=== PATIENT | male | born 1950 | race Caucasian/White ===

== ENCOUNTER 2016-12-21 21:40 | Inpatient (IN) | payer MEDICARE ==
[~2016-12-21] VITALS: Ht 165.1 cm; Wt 85.3 kg
[~2016-12-21 21:40] MED LIST: BRIM15DR8 OP; DORZ10DR7 EACHEYE; ERYTHROMYCIN RIGHTEYE; FINA5TAB11 PO; LATA2.5D2 RIGHTEYE; LISI-604 PO; OMEP20CA10 PO; P20 PO; PYRI60TA10 PO; TAMS0.4C31 PO
[2016-12-21] MEDS ORDERED: SODIUM CHLORIDE 0.9% 1,000 ML IV ONE (22:06)
[2016-12-21] MEDS ORDERED: KETOROLAC 30MG/ML VIAL IV STA (22:06)
[2016-12-21 22:57] LABS: HEMATOCRIT. 41.4 % (42.0-52.0); HEMOGLOBIN. 13.4 g/dL (14.0-18.0); MEAN CORPUSCULAR HEMOGLOBIN 29.7 pg (28.0-32.0); MEAN CORPUSCULAR VOLUME 91.6 fL (80.0-94.0); MEAN PLATELET VOLUME 7.6 fl (7.4-10.4); PLATELET 220 x1000/uL (130-400); RED BLOOD CELL COUNT 4.52 mill/uL (4.7-6.1)
[2016-12-21 23:09] LABS: CARBON DIOXIDE 21 mEq/L (21-32); CHLORIDE 106 mEq/L (98-107); INR 1.3; PROTHROMBIN TIME 13.5 sec (9.4-11.6)
[2016-12-21 23:34] LABS: PLATELET ESTIMATE NORMAL
[2016-12-22] VITALS (44 sets, daily range): BP systolic 47–173; BP diastolic 23–96
[2016-12-22] MEDS ORDERED: PIPERACILLIN/TAZ 3.375G PREMIX 50 ML IV ONE
[2016-12-22] MEDS ORDERED: METRONIDAZOLE 500 MG PREMIX 100 ML IV ONE
[2016-12-22] MEDS ORDERED: ACETAMINOPHEN 325MG TABLET PO PRN (00:45)
[2016-12-22] MEDS ORDERED: ONDANSETRON HCL 4MG/2ML VIAL IV PRN (00:45)
[2016-12-22] MEDS ORDERED: PIPERACILLIN/TAZ 3.375G PREMIX 50 ML IV SCH (00:45)
[2016-12-22] MEDS ORDERED: ENOXAPARIN 40MG/0.4ML SYR SUBCUT SCH (00:45)
[2016-12-22 01:10] LABS: HEMATOCRIT. 32.9 % (42.0-52.0); MEAN CORPUSCULAR HEMOGLOBIN 30.5 pg (28.0-32.0); MEAN CORPUSCULAR VOLUME 91.7 fL (80.0-94.0); MEAN PLATELET VOLUME 7.1 fl (7.4-10.4); PLATELET 161 x1000/uL (130-400); RED BLOOD CELL COUNT 3.59 mill/uL (4.7-6.1); RED CELL DISTRIBUTION WIDTH 15.1 % (11.6-14.6)
[2016-12-22] MEDS: SODIUM CHLORIDE 0.9% 1,000 ML IV SCH ×3 (01:23→12:59)
[2016-12-22] MEDS ORDERED: KCL 10MEQ/50ML PREMIX 50 ML IV ONE (02:00)
[2016-12-22 02:13] LABS: CLARITY URINE TURBID (CLEAR); COLOR URINE DARK YELLOW (YELLOW); GLUCOSE URINE TRACE (NEGATIVE); KETONES URINE TRACE (NEGATIVE); LEUKOCYTE ESTERASE URINE 1+ (NEGATIVE); NITRITE URINE NEGATIVE (NEGATIVE); OCCULT BLOOD URINE 3+ (NEGATIVE); PROTEIN URINE 2+ (NEGATIVE); SPECIFIC GRAVITY URINE 1.028 (1.005-1.030); UROBILINOGEN URINE 0.2 E.U./dL (0.2-1.0)
[2016-12-22 04:01] LABS: NUCLEATED RED BLOOD CELLS 1 /100 WBC
[2016-12-22 04:02] LABS: PLATELET ESTIMATE NORMAL
[2016-12-22] MEDS: HYDROMORPHONE HCL/PF 2MG/ML CPJ IV PRN ×2 (04:29→06:41)
[2016-12-22] MEDS: HYDROCORTISONE SOD SUCCINATE 100 MG/2 ML VIAL IV SCH ×3 (06:00→22:38)
[2016-12-22] MEDS: OMEPRAZOLE 20MG CAPSULE EXTENDED RELEASE PO SCH (06:43)
[2016-12-22] MEDS ORDERED: PYRIDOSTIGMINE BROMIDE 60MG TABLET PO SCH (08:00)
[2016-12-22] MEDS: LISINOPRIL 20MG TABLET PO SCH (09:00)
[2016-12-22] MEDS ORDERED: PREDNISONE 20MG TABLET PO SCH (09:00)
[2016-12-22] MEDS: BRIMONIDINE 0.2% OPHTH DROPS 5ML BOTHEYE SCH ×3 (09:00→16:21)
[2016-12-22] MEDS: DORZOLAMIDE 2% OPHTH 10 ML BOTTLE EACHEYE SCH ×2 (10:37→16:21)
[2016-12-22] MEDS: ENOXAPARIN 30MG/0.3ML SYR SUBCUT SCH (10:38)
[2016-12-22] MEDS: PIPERACILLIN/TAZ 2.25G PREMIX 50 ML IV SCH ×3 (10:38→23:38)
[2016-12-22] MEDS ORDERED: DEXTROSE 50% WATER 50ML SYRINGE IV ONE (10:44)
[2016-12-22] MEDS ORDERED: SODIUM BICARBONATE 7.5% 0.9 MEQ/ML 50ML SYR IV ONE (10:44)
[2016-12-22] MEDS ORDERED: EPINEPHRINE 0.1MG/ML (1:10,000) 10ML SYR ONE (10:44)
[2016-12-22] MEDS ORDERED: PYRIDOSTIGMINE BROMIDE 60MG TABLET PO NR (10:45)
[2016-12-22] MEDS ORDERED: METF500T4 PO (10:56)
[2016-12-22] MEDS ORDERED: ATOR20TA65 PO (10:58)
[2016-12-22] MEDS: PYRIDOSTIGMINE BROMIDE 60MG TABLET PO SCH ×2 (12:59→18:00)
[2016-12-22 14:41] LABS: HEMATOCRIT. 34.2 % (42.0-52.0); HEMOGLOBIN. 10.5 g/dL (14.0-18.0); MEAN CORPUSCULAR HEMOGLOBIN 29.7 pg (28.0-32.0); MEAN CORPUSCULAR VOLUME 96.5 fL (80.0-94.0); MEAN PLATELET VOLUME 9.1 fl (7.4-10.4); PLATELET 132 x1000/uL (130-400); RED BLOOD CELL COUNT 3.55 mill/uL (4.7-6.1); RED CELL DISTRIBUTION WIDTH 15.6 % (11.6-14.6)
[2016-12-22] MEDS ORDERED: VANCOMYCIN 500 MG PREMIX 100 ML IV SCH (14:45)
[2016-12-22 14:49] LABS: INR 1.5; PARTIAL THROMBOPLASTIN TIME 53.4 sec (23.4-31.0); PROTHROMBIN TIME 15.4 sec (9.4-11.6)
[2016-12-22 14:55] LABS: BG BASE EXCESS -22.8 mmol/L (-2.0-2.0); BG CARBOXYHEMOGLOBIN 0.3 % (0.5-1.5); BG DEOXYHEMOGLOBIN 7.1 % (0.0-5.0); BG FRACTION INSPIRED OXYGEN 100; BG HCO3 ACT 8.5 mmol/L (22.0-26.0); BG METHEMOGLOBIN 0.3 % (0.0-1.5); BG OXYGEN SATURATION 92.9 % (92.0-98.5); BG OXYHEMOGLOBIN 92.3 % (94.0-97.0); BG PCO2 40.3 mmHg (35.0-45.0); BG PH 6.941 (7.350-7.450); BG PO2 96.8 mmHg (75.0-100.0); BG SAMPLE SITE RIGHT RADIAL; BG TIDAL VOLUME(mL) 500 mL; BG TOTAL HEMOGLOBIN 10.4 g/dL (12.0-18.0); BG VENT MODE VENT - A/C; BG VENT RATE 16 set
[2016-12-22] MEDS ORDERED: VANCOMYCIN 1500MG in DEXTROSE 5% WATER 250ML IV NR (15:00)
[2016-12-22] MEDS ORDERED: SODIUM BICARBONATE 8.4% 1 MEQ/ML 50ML SYR IV NR ×4 (15:00→23:30)
[2016-12-22 15:06] LABS: PHOSPHORUS 8.7 mg/dL (2.5-4.9)
[2016-12-22] MEDS ORDERED: SODIUM BICARBONATE 8.4% 1 MEQ/ML 50ML SYR IV ONE ×6 (15:06→19:20)
[2016-12-22] MEDS: SODIUM BICARBONATE 100 MEQ in DEXT 5%/0.45% NACL 1000ML 1,000 ML IV SCH (15:39)
[2016-12-22] MEDS: PHENYLEPHRINE 40 MG in DEXT 5% WATER 246 ML IV PRN ×2 (15:40→21:08)
[2016-12-22] MEDS: NOREPINEPHRINE 16 MG in DEXT 5% WATER 234 ML IV PRN ×2 (15:40→23:45)
[2016-12-22 15:42] LABS: NUCLEATED RED BLOOD CELLS 2 /100 WBC
[2016-12-22 15:44] LABS: PLATELET ESTIMATE NORMAL
[2016-12-22] MEDS ORDERED: SODIUM CHLORIDE 0.9% 1,000 ML IV SCH (16:00)
[2016-12-22] MEDS: BLOOD SUGAR DIAGNOSTIC STRIP TEST SCH (16:14)
[2016-12-22 16:51] LABS: BG CARBOXYHEMOGLOBIN 0.1 % (0.5-1.5); BG DEOXYHEMOGLOBIN 1.9 % (0.0-5.0); BG FRACTION INSPIRED OXYGEN 100; BG HCO3 ACT 12.6 mmol/L (22.0-26.0); BG METHEMOGLOBIN 0.3 % (0.0-1.5); BG OXYGEN SATURATION 98.1 % (92.0-98.5); BG OXYHEMOGLOBIN 97.7 % (94.0-97.0); BG PCO2 35.6 mmHg (35.0-45.0); BG PH 7.167 (7.350-7.450); BG PO2 144.3 mmHg (75.0-100.0); BG SAMPLE SITE RIGHT BRACHIAL; BG TIDAL VOLUME(mL) 500 mL; BG TOTAL HEMOGLOBIN 12.2 g/dL (12.0-18.0); BG VENT MODE VENT - A/C; BG VENT RATE 16 set
[2016-12-22] MEDS ORDERED: SKIN ADHESIVE 0.7 GM EA TOP ONE (17:16)
[2016-12-22] MEDS ORDERED: BACITRACIN 50,000 UNITS/VIAL ONE (17:17)
[2016-12-22] MEDS ORDERED: NORMAL SALINE 0.9% 10 ML SYR ONE (17:17)
[2016-12-22] MEDS ORDERED: BUPIVACAINE HCL 0.5% (5MG/ML) 50ML ONE (17:17)
[2016-12-22] MEDS ORDERED: ROCURONIUM BROMIDE 10MG/ML VIAL 5ML IV ONE ×2 (18:04→19:04)
[2016-12-22] MEDS ORDERED: SODIUM BICARBONATE 4% (2.4MEQ) 5ML VIAL IV ONE (18:22)
[2016-12-22] MEDS ORDERED: MIDAZOLAM HCL 2 MG/2 ML VIAL ONE ×3 (18:33→19:54)
[2016-12-22] MEDS ORDERED: PHENYLEPHRINE HCL 10 MG/ML 1ML (IV VIAL) IV ONE (18:45)
[2016-12-22] MEDS ORDERED: SODIUM CHLORIDE 0.9% 10ML VIAL ONE ×2 (18:45→20:01)
[2016-12-22] MEDS: TAMSULOSIN HCL 0.4MG SR CAPSULE PO SCH (21:00)
[2016-12-22] MEDS: LATANOPROST 0.005% OPHTH DROPS 2.5ML RIGHTEYE SCH (21:00)
[2016-12-22 21:21] LABS: BG BASE EXCESS -10.9 mmol/L (-2.0-2.0); BG CARBOXYHEMOGLOBIN 1.1 % (0.5-1.5); BG DEOXYHEMOGLOBIN 5.5 % (0.0-5.0); BG FRACTION INSPIRED OXYGEN 100; BG HCO3 ACT 16.2 mmol/L (22.0-26.0); BG METHEMOGLOBIN 0.2 % (0.0-1.5); BG OXYGEN SATURATION 94.4 % (92.0-98.5); BG OXYHEMOGLOBIN 93.2 % (94.0-97.0); BG PCO2 40.5 mmHg (35.0-45.0); BG PO2 83.3 mmHg (75.0-100.0); BG SAMPLE SITE RIGHT BRACHIAL; BG TIDAL VOLUME(mL) 500 mL; BG TOTAL HEMOGLOBIN 14.6 g/dL (12.0-18.0); BG VENT MODE VENT - A/C; BG VENT RATE 16 set
[2016-12-22] MEDS ORDERED: HYDROCORTISONE SOD SUCCINATE 100 MG/2 ML VIAL IV SCH (22:15)
[2016-12-22] MEDS: FINASTERIDE 5MG TABLET PO SCH (22:37)
[2016-12-22] MEDS ORDERED: SODIUM CHLORIDE 0.9% 500 ML IV ONE (23:30)
[2016-12-23] VITALS (86 sets, daily range): BP systolic 61–131; BP diastolic 38–74
[2016-12-23] MEDS: PHENYLEPHRINE 40 MG in DEXT 5% WATER 246 ML IV PRN (01:31)
[2016-12-23] MEDS ORDERED: NOREPINEPHRINE 32 MG in DEXT 5% WATER 468 ML IV PRN (01:45)
[2016-12-23] MEDS: BLOOD SUGAR DIAGNOSTIC STRIP TEST SCH ×10 (02:00→18:19)
[2016-12-23] MEDS ORDERED: SODIUM CHLORIDE 0.9% 500 ML IV ONE ×2 (02:00→11:30)
[2016-12-23 02:13] LABS: HEMATOCRIT 42.4 % (42.0-52.0); HEMOGLOBIN 13.6 g/dL (14.0-18.0)
[2016-12-23] MEDS ORDERED: SODIUM CHLORIDE 0.9% 1,000 ML IV SCH (04:00)
[2016-12-23] MEDS: SODIUM BICARBONATE 100 MEQ in DEXT 5%/0.45% NACL 1000ML 1,000 ML IV SCH (04:42)
[2016-12-23] MEDS: PHENYLEPHRINE 80 MG in DEXT 5% WATER 492 ML IV PRN ×2 (05:24→13:28)
[2016-12-23] MEDS: HYDROCORTISONE SOD SUCCINATE 100 MG/2 ML VIAL IV SCH ×3 (05:51→21:52)
[2016-12-23] MEDS: PYRIDOSTIGMINE BROMIDE 60MG TABLET PO SCH ×4 (06:00→18:00)
[2016-12-23 06:07] LABS: HEMATOCRIT. 43.8 % (42.0-52.0); HEMOGLOBIN. 13.5 g/dL (14.0-18.0); MEAN CORPUSCULAR HEMOGLOBIN 30.7 pg (28.0-32.0); MEAN CORPUSCULAR VOLUME 99.7 fL (80.0-94.0); MEAN PLATELET VOLUME 9.8 fl (7.4-10.4)
[2016-12-23 06:39] LABS: CHLORIDE 110 mEq/L (98-107)
[2016-12-23 06:43] LABS: PLATELET 32 x1000/uL (130-400)
[2016-12-23 06:47] LABS: NUCLEATED RED BLOOD CELLS 11 /100 WBC; PLATELET ESTIMATE MARKEDLY DECREASED
[2016-12-23 07:11] LABS: CARBON DIOXIDE 13 mEq/L (21-32)
[2016-12-23] MEDS: OMEPRAZOLE 20MG CAPSULE EXTENDED RELEASE PO SCH (07:50)
[2016-12-23] MEDS: DEXTROSE 50% WATER 50ML SYRINGE IV PRN ×2 (07:54→14:02)
[2016-12-23] MEDS ORDERED: DOPAMINE 800MG PREMIX 250 ML IV PRN (08:00)
[2016-12-23] MEDS ORDERED: ALBUMIN HUMAN 25GM/500ML (5%) IV SCH (08:00)
[2016-12-23] MEDS ORDERED: SODIUM BICARBONATE 8.4% 1 MEQ/ML 50ML SYR IV SCH ×3 (08:00→10:00)
[2016-12-23 08:33] LABS: BG BASE EXCESS -24.8 mmol/L (-2.0-2.0); BG CARBOXYHEMOGLOBIN 0.3 % (0.5-1.5); BG DEOXYHEMOGLOBIN 10.5 % (0.0-5.0); BG FRACTION INSPIRED OXYGEN 100; BG HCO3 ACT 8.4 mmol/L (22.0-26.0); BG OXYGEN SATURATION 89.5 % (92.0-98.5); BG OXYHEMOGLOBIN 89.2 % (94.0-97.0); BG PCO2 48.5 mmHg (35.0-45.0); BG PH 6.856 (7.350-7.450); BG PO2 83.6 mmHg (75.0-100.0); BG SAMPLE SITE RIGHT RADIAL; BG TIDAL VOLUME(mL) 500 mL; BG TOTAL HEMOGLOBIN 11.5 g/dL (12.0-18.0); BG VENT MODE VENT - A/C; BG VENT RATE 16 set
[2016-12-23] MEDS: LISINOPRIL 20MG TABLET PO SCH (08:33)
[2016-12-23] MEDS: ENOXAPARIN 30MG/0.3ML SYR SUBCUT SCH (08:34)
[2016-12-23] MEDS: BRIMONIDINE 0.2% OPHTH DROPS 5ML BOTHEYE SCH ×2 (09:16→16:26)
[2016-12-23] MEDS: PIPERACILLIN/TAZ 2.25G PREMIX 50 ML IV SCH ×2 (09:16→15:13)
[2016-12-23] MEDS: DORZOLAMIDE 2% OPHTH 10 ML BOTTLE EACHEYE SCH ×2 (09:16→16:26)
[2016-12-23 09:47] LABS: BG BASE EXCESS -20.5 mmol/L (-2.0-2.0); BG CARBOXYHEMOGLOBIN 0.3 % (0.5-1.5); BG DEOXYHEMOGLOBIN 3.1 % (0.0-5.0); BG FRACTION INSPIRED OXYGEN 100; BG HCO3 ACT 9.4 mmol/L (22.0-26.0); BG METHEMOGLOBIN 0.3 % (0.0-1.5); BG OXYGEN SATURATION 96.9 % (92.0-98.5); BG OXYHEMOGLOBIN 96.3 % (94.0-97.0); BG PCO2 37.6 mmHg (35.0-45.0); BG PH 7.018 (7.350-7.450); BG PO2 128.9 mmHg (75.0-100.0); BG SAMPLE SITE RIGHT BRACHIAL; BG TIDAL VOLUME(mL) 500 mL; BG TOTAL HEMOGLOBIN 10.6 g/dL (12.0-18.0); BG VENT MODE VENT - A/C; BG VENT RATE 16 set
[2016-12-23] MEDS: SODIUM BICARBONATE IV SCH ×2 (10:49→18:55)
[2016-12-23] MEDS: DEXTROSE 5% IV SCH ×2 (10:49→18:55)
[2016-12-23] MEDS: WATER IV SCH ×2 (10:49→18:55)
[2016-12-23] MEDS ORDERED: VASOPRESSIN 10 UNIT in SODIUM CHLORIDE 0.9% 99.5 ML IV PRN (11:30)
[2016-12-23 11:40] LABS: BG BASE EXCESS -18.5 mmol/L (-2.0-2.0); BG CARBOXYHEMOGLOBIN 0.3 % (0.5-1.5); BG DEOXYHEMOGLOBIN 3.6 % (0.0-5.0); BG FRACTION INSPIRED OXYGEN 100; BG HCO3 ACT 10.5 mmol/L (22.0-26.0); BG METHEMOGLOBIN 0.3 % (0.0-1.5); BG OXYGEN SATURATION 96.4 % (92.0-98.5); BG OXYHEMOGLOBIN 95.8 % (94.0-97.0); BG PCO2 36.8 mmHg (35.0-45.0); BG PH 7.075 (7.350-7.450); BG PO2 114.8 mmHg (75.0-100.0); BG SAMPLE SITE RIGHT BRACHIAL; BG TIDAL VOLUME(mL) 500 mL; BG TOTAL HEMOGLOBIN 10.8 g/dL (12.0-18.0); BG VENT MODE VENT - A/C; BG VENT RATE 16 set
[2016-12-23 13:03] LABS: BG BASE EXCESS -19.3 mmol/L (-2.0-2.0); BG CARBOXYHEMOGLOBIN 0.2 % (0.5-1.5); BG DEOXYHEMOGLOBIN 5.6 % (0.0-5.0); BG FRACTION INSPIRED OXYGEN 100; BG HCO3 ACT 8.1 mmol/L (22.0-26.0); BG METHEMOGLOBIN 0.4 % (0.0-1.5); BG OXYGEN SATURATION 94.4 % (92.0-98.5); BG OXYHEMOGLOBIN 93.8 % (94.0-97.0); BG PCO2 24.5 mmHg (35.0-45.0); BG PH 7.137 (7.350-7.450); BG SAMPLE SITE RIGHT BRACHIAL; BG TIDAL VOLUME(mL) 500 mL; BG TOTAL HEMOGLOBIN 10.9 g/dL (12.0-18.0); BG VENT MODE VENT - A/C; BG VENT RATE 18 set
[2016-12-23] MEDS: FINASTERIDE 5MG TABLET PO SCH (21:00)
[2016-12-23] MEDS: LATANOPROST 0.005% OPHTH DROPS 2.5ML RIGHTEYE SCH (21:00)
[2016-12-23] MEDS: TAMSULOSIN HCL 0.4MG SR CAPSULE PO SCH (21:00)
[2016-12-23] MEDS ORDERED: MORPHINE SULFATE 100 MG in DEXT 5% WATER 90 ML IV PRN (22:00)
== END 2016-12-23 22:38 | disposition expired | DRG 853 ==
LOC: ER 22:13 → 8WST 12-22 00:37 → EDBEDREQTM 12-22 00:41 → EDBEDREQ 12-22 00:41 → EDBEDREQDT 12-22 00:41 → ENRESERV 12-22 04:17 → CVICU 12-22 13:33
PROVIDERS: ADMIT Internal Medicine; ATTEND Internal Medicine
PROC: 0D1K0Z4 Bypass Ascending Colon to Cutaneous, Open Approach (ICD-10-PCS; 2016-12-22)
PROC: 5A12012 Performance of Cardiac Output, Single, Manual (ICD-10-PCS; 2016-12-22)
PROC: 04HK33Z Insertion of Infusion Device into Right Femoral Artery, Percutaneous Approach (ICD-10-PCS; 2016-12-22)
PROC: 0BH17EZ Insertion of Endotracheal Airway into Trachea, Via Natural or Artificial Opening (ICD-10-PCS; 2016-12-22)
PROC: 5A1945Z Respiratory Ventilation, 24-96 Consecutive Hours (ICD-10-PCS; 2016-12-22)
PROC: 30233N1 Transfusion of Nonautologous Red Blood Cells into Peripheral Vein, Percutaneous Approach (ICD-10-PCS; 2016-12-22)
PROC: 0DTG0ZZ Resection of Left Large Intestine, Open Approach (ICD-10-PCS; principal; 2016-12-22 17:00)
DX: A41.9 Sepsis, unspecified organism (principal); G93.41 Metabolic encephalopathy; J96.90 Respiratory failure, unspecified, unspecified whether with hypoxia or hypercapnia; R65.21 Severe sepsis with septic shock; I46.9 Cardiac arrest, cause unspecified; K63.1 Perforation of intestine (nontraumatic); K65.9 Peritonitis, unspecified; I95.9 Hypotension, unspecified; N17.9 Acute kidney failure, unspecified; K57.80 Diverticulitis of intestine, part unspecified, with perforation and abscess without bleeding; E87.2 Acidosis; K66.8 Other specified disorders of peritoneum; G70.00 Myasthenia gravis without (acute) exacerbation; N18.9 Chronic kidney disease, unspecified; E11.649 Type 2 diabetes mellitus with hypoglycemia without coma; E11.22 Type 2 diabetes mellitus with diabetic chronic kidney disease; Z43.3 Encounter for attention to colostomy; Z79.52 Long term (current) use of systemic steroids; Z87.442 Personal history of urinary calculi; Z79.899 Other long term (current) drug therapy
CPT/HCPCS: 31500; 36415; 36600; 71010; 74000; 74176; 80048; 80053; 80202; 81001; 82375; 82805; 82962; 83690; 83735; 84100; 85014; 85018; 85025; 85610; 85730; 86850; 86900; 86920; 87070; 87077; 87186; 87205; 88307; 92950; 93005; 94002; 94003; 96361; 96365; 96368; 96375; 99285; A4216; C1758; J0171; J1170; J1265; J1650; J1720; J1885; J2250; J2270; J2370; J2543; J3370; J3480; J3490; J7030; J7040; J7050; J7060; J7070; P9016; P9041; A4315